=== PATIENT | female | born 1995 | race Two or more races ===

== ENCOUNTER → 2022-05-28 | Outpatient (REF) | payer OTHER | LOC: M LAB REF 12:35 | PROVIDERS: ATTEND Physician Assistant Medical | DX: J06.9 Acute upper respiratory infection, unspecified (principal) ==

== ENCOUNTER → 2022-06-16 | Outpatient (CLI) | payer OTHER ==
[2022-06-16 15:48] LABS: PERCENT SATURATION 37.1 % (13.2-45.0)
[2022-06-16 16:57] LABS: BASO % 0.7 % (0.0-1.0); EOS # 0.1 10^3/uL (0.0-0.5); EOS % 1.1 % (0.0-3.0); HEMATOCRIT 25.4 % (36.0-47.0); HEMOGLOBIN 7.5 g/dl (12.0-15.5); LYMPH # 1.3 10^3/uL (1.5-5.0); MEAN CORPUSCULAR VOLUME 88.2 fl (80.0-96.0); MONO # 0.2 10^3/uL (0.0-0.8); MONO % 4.7 % (2.0-8.0); NEUTROPHILS # 2.8 10^3/uL (1.5-8.5); NEUTROPHILS % 62.3 % (36.0-66.0); PLATELET COUNT, AUTOMATED 103 10^3/uL (150-450); RED BLOOD COUNT 2.88 10^6/uL (4.00-5.40); WHITE BLOOD COUNT 4.5 10^3/uL (4.0-10.0)
[2022-06-16 17:02] LABS: MEAN CORPUSCULAR HGB CONC 29.5 g/dl (32.0-36.5)
== END ==
LOC: M PLALAB 13:29
PROVIDERS: ATTEND Internal Medicine Hematology
DX: D69.3 Immune thrombocytopenic purpura (principal)

== ENCOUNTER 2022-06-25 16:53 | Inpatient (IN) | payer OTHER ==
[~2022-06-25] VITALS: Ht 160 cm; Wt 72.1 kg
[2022-06-25] MEDS ORDERED: Vitamin D (17:04)
[2022-06-25] MEDS ORDERED: ACETAMINOPHEN TAB 650MG DOSE (2X325MG) PO ONE (18:20)
[2022-06-25] MEDS ORDERED: diphenhydrAMINE 50MG CAP PO ONE (18:20)
[2022-06-25] MEDS ORDERED: predniSONE 20 MG TAB PO ONE (18:30)
[2022-06-25] MEDS ORDERED: VITMTA PO (18:35)
[2022-06-25] MEDS ORDERED: HOME MED LIST COMPLETE! XX SCH (18:35)
[2022-06-25] MEDS ORDERED: ERGO500029 PO (18:35)
[2022-06-25 18:58] LABS: BASO % 0.6 % (0.0-1.0); EOS % 1.2 % (0.0-3.0); LYMPH % 29.6 % (24.0-44.0); MEAN CORPUSCULAR HEMOGLOBIN 26.1 pg (27.0-33.0); MEAN CORPUSCULAR VOLUME 89.6 fl (80.0-96.0); MONO # 0.2 10^3/uL (0.0-0.8); MONO % 5.1 % (2.0-8.0); NEUTROPHILS # 2.1 10^3/uL (1.5-8.5); NEUTROPHILS % 61.7 % (36.0-66.0); PLATELET COUNT, AUTOMATED 122 10^3/uL (150-450); RED BLOOD COUNT 2.11 10^6/uL (4.00-5.40); WHITE BLOOD COUNT 3.3 10^3/uL (4.0-10.0)
[2022-06-25 19:00] LABS: HEMATOCRIT 18.9 % (36.0-47.0); HEMOGLOBIN 5.5 g/dl (12.0-15.5)
[2022-06-25 19:08] LABS: APPEARANCE, URINE MANUAL CLEAR (CLEAR); COLOR, URINE MANUAL LT YELLOW (YELLOW)
[2022-06-25 19:09] LABS: INR 0.95; PROTHROMBIN TIME 13.1 SECONDS (12.7-14.5)
[2022-06-25 19:10] LABS: PARTIAL THROMBOPLASTIN TIME 30.5 SECONDS (25.9-37.0)
[2022-06-25 19:11] LABS: BILIRUBIN, URINE MANUAL NEGATIVE (NEGATIVE); BLOOD URINE MANUAL POSITIVE (NEGATIVE); GLUCOSE, URINE (UA) MANUAL NEGATIVE (NEGATIVE); KETONE, URINE MANUAL NEGATIVE (NEGATIVE); LEUKOCYTE ESTERASE, URINE MAN POSITIVE (NEGATIVE); NITRITE, URINE MANUAL NEGATIVE (NEGATIVE); PH,URINE MAN 6.5 UNITS (5.0 - 7.0); PROTEIN, URINE MANUAL NEGATIVE (NEGATIVE); UROBILINOGEN, URINE MANUAL NORMAL (NORMAL)
[2022-06-25 19:16] LABS: MEAN CORPUSCULAR HGB CONC 29.1 g/dl (32.0-36.5)
[2022-06-25 19:36] LABS: BACTERIA, URINE NONE SEEN; HYALINE CAST, URINE NONE SEEN /lpf (0-1); RBC, URINE 0-1 /hpf (0-3); SQUAMOUS EPITHELIAL CELL URINE MOD AMOUNT /hpf (SMALL AMT); YEAST, URINE SMALL AMOUNT
[2022-06-25 19:42] LABS: RSV AMPLIFICATION NEGATIVE (NEGATIVE)
[2022-06-25] MEDS ORDERED: ISOVUE-370 76% 100ML VIAL As Ordered ONE (19:50)
[2022-06-25 19:53] LABS: ALBUMIN 3.1 GM/DL (3.2-5.2); ALT/SGPT 21 U/L (12-78); BILIRUBIN,TOTAL 0.7 MG/DL (0.2-1.0); BLOOD UREA NITROGEN 11 MG/DL (7-18); CALCIUM LEVEL 8.2 MG/DL (8.5-10.1); CARBON DIOXIDE LEVEL 23 MEQ/L (21-32); CHLORIDE LEVEL 110 MEQ/L (98-107); FOLATE > 24.0 NG/ML (>5.4); GLOMERULAR FILTRATION RATE > 60.0 (>60); GLUCOSE, FASTING 92 MG/DL (70-100); POTASSIUM SERUM 3.4 MEQ/L (3.5-5.1); SODIUM LEVEL 139 MEQ/L (136-145); TOTAL PROTEIN 9.1 GM/DL (6.4-8.2); VITAMIN B12 LEVEL 640 PG/ML (247-911)
[2022-06-25 19:55] LABS: HEPATITIS B SURFACE ANTIGEN NEGATIVE (NEGATIVE)
[2022-06-25 20:23] LABS: HEPATITIS B CORE ANTIBODY IGM NEGATIVE (NEGATIVE)
[2022-06-25 20:24] LABS: HIV 1&2 SCREEN CENTAUR NEGATIVE (NEGATIVE)
[2022-06-25 21:02] LABS: HCG, SERUM QUALITATIVE NEGATIVE (NEGATIVE)
[2022-06-25 21:07] LABS: BILIRUBIN,DIRECT 0.2 MG/DL (0.0-0.2); LDH LACTATE DEHYDROGENASE 529 U/L (84-246)
[2022-06-25 21:19] VITALS: BP 138/81
[2022-06-26 00:37] VITALS: BP 122/65
[2022-06-26 04:00] VITALS: BP 112/63
[2022-06-26 05:49] LABS: ALBUMIN 3.5 GM/DL (3.2-5.2); ALT/SGPT 21 U/L (12-78); BILIRUBIN,DIRECT 0.3 MG/DL (0.0-0.2); BILIRUBIN,TOTAL 0.7 MG/DL (0.2-1.0); BLOOD UREA NITROGEN 12 MG/DL (7-18); CALCIUM LEVEL 8.7 MG/DL (8.5-10.1); CARBON DIOXIDE LEVEL 23 MEQ/L (21-32); CHLORIDE LEVEL 108 MEQ/L (98-107); CREATININE FOR GFR 0.66 MG/DL (0.55-1.30); GLOMERULAR FILTRATION RATE > 60.0 (>60); GLUCOSE, FASTING 143 MG/DL (70-100); LDH LACTATE DEHYDROGENASE 470 U/L (84-246); POTASSIUM SERUM 3.6 MEQ/L (3.5-5.1); SODIUM LEVEL 138 MEQ/L (136-145); TOTAL PROTEIN 9.9 GM/DL (6.4-8.2)
[2022-06-26 06:10] LABS: MEAN CORPUSCULAR HEMOGLOBIN 25.8 pg (27.0-33.0); MEAN CORPUSCULAR HGB CONC 28.3 g/dl (32.0-36.5); MEAN CORPUSCULAR VOLUME 91.1 fl (80.0-96.0); PLATELET COUNT, AUTOMATED 147 10^3/uL (150-450); RED BLOOD COUNT 2.25 10^6/uL (4.00-5.40); WHITE BLOOD COUNT 3.8 10^3/uL (4.0-10.0)
[2022-06-26 06:12] LABS: HEMATOCRIT 20.5 % (36.0-47.0); HEMOGLOBIN 5.8 g/dl (12.0-15.5)
[2022-06-26 08:00] VITALS: BP 125/71
[2022-06-26] MEDS ORDERED: MOXIFLOXACIN 400 MG TAB PO SCH (09:05)
[2022-06-26] MEDS: predniSONE 10 MG TAB PO SCH (09:28)
[2022-06-26 12:00] VITALS: BP 118/70
[2022-06-26 15:42] VITALS: BP 121/68
[2022-06-26 20:00] VITALS: BP 125/62
[2022-06-27] VITALS (17 sets, daily range): BP systolic 111–141; BP diastolic 56–77
[2022-06-27 05:54] LABS: MEAN CORPUSCULAR HEMOGLOBIN 34.6 pg (27.0-33.0); MEAN CORPUSCULAR HGB CONC 33.7 g/dl (32.0-36.5); MEAN CORPUSCULAR VOLUME 102.5 fl (80.0-96.0); PLATELET COUNT, AUTOMATED 121 10^3/uL (150-450); RED BLOOD COUNT 1.59 10^6/uL (4.00-5.40); WHITE BLOOD COUNT 6.3 10^3/uL (4.0-10.0)
[2022-06-27 05:55] LABS: HEMATOCRIT 16.3 % (36.0-47.0); HEMOGLOBIN 5.5 g/dl (12.0-15.5)
[2022-06-27 06:25] LABS: ALBUMIN 3.1 GM/DL (3.2-5.2); ALT/SGPT 16 U/L (12-78); BILIRUBIN,DIRECT 0.2 MG/DL (0.0-0.2); BILIRUBIN,TOTAL 0.6 MG/DL (0.2-1.0); BLOOD UREA NITROGEN 14 MG/DL (7-18); CALCIUM LEVEL 8.4 MG/DL (8.5-10.1); CARBON DIOXIDE LEVEL 25 MEQ/L (21-32); CHLORIDE LEVEL 112 MEQ/L (98-107); CREATININE FOR GFR 0.59 MG/DL (0.55-1.30); GLOMERULAR FILTRATION RATE > 60.0 (>60); GLUCOSE, FASTING 88 MG/DL (70-100); LDH LACTATE DEHYDROGENASE 382 U/L (84-246); POTASSIUM SERUM 3.7 MEQ/L (3.5-5.1); SODIUM LEVEL 142 MEQ/L (136-145); TOTAL PROTEIN 9.2 GM/DL (6.4-8.2)
[2022-06-27] MEDS ORDERED: diphenhydrAMINE 25MG CAP PO ONE (07:25)
[2022-06-27] MEDS ORDERED: ACETAMINOPHEN TAB 650MG DOSE (2X325MG) PO ONE (07:25)
[2022-06-27] MEDS: predniSONE 10 MG TAB PO SCH (09:13)
[2022-06-27] MEDS ORDERED: PRED20TA PO (09:43)
[2022-06-27] MEDS ORDERED: PRED50TA PO (09:43)
[2022-06-27] MEDS: IBUPROFEN 400MG TAB PO PRN (12:57)
[2022-06-27 14:08] LABS: ANTI DOUBLE STRAND-DNA AB 38 IU/mL (0-9); ANTINUCLEAR ANTIBODIES DIRECT Positive (Negative); SJOGREN'S ANTI SS-A >8.0 AI (0.0-0.9); SJOGREN'S ANTI SS-B 1.3 AI (0.0-0.9); SMITH ANTIBODIES 1.7 AI (0.0-0.9)
[2022-06-27] MEDS: FUROSEMIDE 20MG/2ML VIAL (J1940) IV SCH ×2 (14:37→16:00)
[2022-06-27] MEDS ORDERED: PROMETHAZINE 25MG/ML 1ML VIAL IV ONE (17:00)
[2022-06-27] MEDS ORDERED: ACETAMINOPHEN TAB 650MG DOSE (2X325MG) PO STA (20:12)
[2022-06-27 21:19] LABS: LYMPH # 1.9 10^3/uL (1.5-5.0); MEAN CORPUSCULAR HEMOGLOBIN 35.4 pg (27.0-33.0); MEAN CORPUSCULAR HGB CONC 34.9 g/dl (32.0-36.5); MEAN CORPUSCULAR VOLUME 101.6 fl (80.0-96.0); MONO # 0.4 10^3/uL (0.0-0.8); MONO % 3.7 % (2.0-8.0); NEUTROPHILS # 9.2 10^3/uL (1.5-8.5); NEUTROPHILS % 78.9 % (36.0-66.0); RED BLOOD COUNT 1.92 10^6/uL (4.00-5.40); WHITE BLOOD COUNT 11.6 10^3/uL (4.0-10.0)
[2022-06-27 21:36] LABS: HEMATOCRIT 19.5 % (36.0-47.0); HEMOGLOBIN 6.8 g/dl (12.0-15.5)
[2022-06-27 21:37] LABS: PLATELET COUNT, AUTOMATED 75 10^3/uL (150-450)
[2022-06-27 21:44] LABS: ERYTHROCYTE SEDIMENTATION RATE 117 mm/hr (0-20)
[2022-06-27 21:51] LABS: BACTERIA, URINE NONE SEEN; HYALINE CAST, URINE NONE SEEN /lpf (0-1); MUCUS, URINE SMALL AMOUNT (NEGATIVE); SQUAMOUS EPITHELIAL CELL URINE SMALL AMOUNT /hpf (SMALL AMT)
[2022-06-27 21:53] LABS: TRANSITIONAL EPI CELLS, URINE SMALL AMOUNT /hpf; YEAST, URINE SMALL AMOUNT
[2022-06-27] MEDS ORDERED: NS 250 ML IV ONE (23:05)
[2022-06-28] VITALS (11 sets, daily range): BP systolic 106–128; BP diastolic 54–78
[2022-06-28] MEDS ORDERED: FUROSEMIDE 20MG/2ML VIAL (J1940) IV SCH (04:50)
[2022-06-28] MEDS: IBUPROFEN 400MG TAB PO PRN (07:54)
[2022-06-28] MEDS: predniSONE 10 MG TAB PO SCH (09:03)
[2022-06-28 09:41] LABS: MEAN CORPUSCULAR HGB CONC 33.2 g/dl (32.0-36.5); MEAN CORPUSCULAR VOLUME 99.5 fl (80.0-96.0); WHITE BLOOD COUNT 13.6 10^3/uL (4.0-10.0)
[2022-06-28 09:43] LABS: HEMATOCRIT 19.9 % (36.0-47.0)
[2022-06-28 09:44] LABS: HEMOGLOBIN 6.6 g/dl (12.0-15.5); PLATELET COUNT, AUTOMATED 55 10^3/uL (150-450)
[2022-06-28 10:19] LABS: ALBUMIN 3.1 GM/DL (3.2-5.2); ALT/SGPT 25 U/L (12-78); BILIRUBIN,DIRECT 0.7 MG/DL (0.0-0.2); BILIRUBIN,TOTAL 3.9 MG/DL (0.2-1.0); BLOOD UREA NITROGEN 20 MG/DL (7-18); CALCIUM LEVEL 7.8 MG/DL (8.5-10.1); CARBON DIOXIDE LEVEL 24 MEQ/L (21-32); CHLORIDE LEVEL 110 MEQ/L (98-107); CREATININE FOR GFR 0.65 MG/DL (0.55-1.30); GLOMERULAR FILTRATION RATE > 60.0 (>60); GLUCOSE, FASTING 84 MG/DL (70-100); LDH LACTATE DEHYDROGENASE 552 U/L (84-246); POTASSIUM SERUM 3.1 MEQ/L (3.5-5.1); SODIUM LEVEL 139 MEQ/L (136-145); TOTAL PROTEIN 8.9 GM/DL (6.4-8.2)
[2022-06-28] MEDS: NS 1,000 ML IV SCH ×2 (10:59→20:54)
[2022-06-28] MEDS ORDERED: MOXIFLOXACIN 400 MG TAB PO ONE (11:00)
[2022-06-28] MEDS ORDERED: MOXI400T11 PO (16:15)
[2022-06-28] MEDS ORDERED: FOLI1TAB11 PO (16:15)
[2022-06-28] MEDS: FOLIC ACID 1MG TAB PO SCH (20:56)
[2022-06-29] VITALS: BP 135/74
[2022-06-29 04:00] VITALS: BP 130/84
[2022-06-29 05:28] LABS: HEMATOCRIT 21.4 % (36.0-47.0); MEAN CORPUSCULAR HGB CONC 31.3 g/dl (32.0-36.5); MEAN CORPUSCULAR VOLUME 99.1 fl (80.0-96.0); RED BLOOD COUNT 2.16 10^6/uL (4.00-5.40); WHITE BLOOD COUNT 8.6 10^3/uL (4.0-10.0)
[2022-06-29 05:38] LABS: HEMOGLOBIN 6.7 g/dl (12.0-15.5); PLATELET COUNT, AUTOMATED 41 10^3/uL (150-450)
[2022-06-29 05:58] LABS: ALBUMIN 2.8 GM/DL (3.2-5.2); ALT/SGPT 20 U/L (12-78); BILIRUBIN,DIRECT 0.6 MG/DL (0.0-0.2); BILIRUBIN,TOTAL 1.9 MG/DL (0.2-1.0); BLOOD UREA NITROGEN 16 MG/DL (7-18); CALCIUM LEVEL 7.3 MG/DL (8.5-10.1); CARBON DIOXIDE LEVEL 22 MEQ/L (21-32); CHLORIDE LEVEL 115 MEQ/L (98-107); CREATININE FOR GFR 0.52 MG/DL (0.55-1.30); GLOMERULAR FILTRATION RATE > 60.0 (>60); GLUCOSE, FASTING 83 MG/DL (70-100); LDH LACTATE DEHYDROGENASE 486 U/L (84-246); POTASSIUM SERUM 3.2 MEQ/L (3.5-5.1); SODIUM LEVEL 141 MEQ/L (136-145); TOTAL PROTEIN 7.9 GM/DL (6.4-8.2)
[2022-06-29] MEDS: NS 1,000 ML IV SCH (05:59)
[2022-06-29] MEDS ORDERED: MOXIFLOXACIN 400 MG TAB PO SCH (06:00)
[2022-06-29 08:00] VITALS: BP 121/74
[2022-06-29] MEDS ORDERED: POTASSIUM CHLORIDE 10MEQ SR TABLET PO ONE (08:00)
[2022-06-29] MEDS: predniSONE 10 MG TAB PO SCH (09:36)
[2022-06-29] MEDS: FOLIC ACID 1MG TAB PO SCH (09:36)
[2022-06-30 17:08] LABS: HAPTOGLOBIN < 10 mg/dL (33-278)
[2022-07-01 18:08] LABS: ANTI PARVO VIRUS LEVEL IGG 0.2 index (0.0-0.8); ANTI PARVO VIRUS LEVEL IgM 0.1 index (0.0-0.8); Methylmalonic Acid 117 nmol/L (0-378)
== END 2022-06-29 13:49 | disposition home or self-care (01) | DRG 813 ==
LOC: M ED 16:53 → M ED INP 17:55 → M PCU 21:15
PROVIDERS: ADMIT General Practice; ATTEND General Practice
PROC: 30233N1 Transfusion of Nonautologous Red Blood Cells into Peripheral Vein, Percutaneous Approach (ICD-10-PCS; principal; 2022-06-27)
DX: D69.41 Evans syndrome (principal); D59.10 Autoimmune hemolytic anemia, unspecified; R91.1 Solitary pulmonary nodule; Z88.2 Allergy status to sulfonamides; Z91.040 Latex allergy status; Z79.899 Other long term (current) drug therapy; D69.6 Thrombocytopenia, unspecified

== ENCOUNTER → 2022-06-25 | Outpatient (CLI) | payer OTHER ==
[~2022-06-25] MED LIST: ERGO500029 PO; FOLI1TAB11 PO; MOXI400T11 PO; PRED20TA PO; PRED50TA PO; VITMTA PO; Vitamin D
[2022-06-25 15:32] LABS: BASO % 0.8 % (0.0-1.0); EOS # 0.1 10^3/uL (0.0-0.5); EOS % 1.8 % (0.0-3.0); LYMPH % 24.5 % (24.0-44.0); MEAN CORPUSCULAR HEMOGLOBIN 25.7 pg (27.0-33.0); MEAN CORPUSCULAR HGB CONC 28.4 g/dl (32.0-36.5); MEAN CORPUSCULAR VOLUME 90.4 fl (80.0-96.0); MONO # 0.2 10^3/uL (0.0-0.8); MONO % 4.3 % (2.0-8.0); NEUTROPHILS # 2.7 10^3/uL (1.5-8.5); NEUTROPHILS % 67.8 % (36.0-66.0); PLATELET COUNT, AUTOMATED 132 10^3/uL (150-450); WHITE BLOOD COUNT 3.9 10^3/uL (4.0-10.0)
[2022-06-25 15:34] LABS: HEMATOCRIT 20.8 % (36.0-47.0); HEMOGLOBIN 5.9 g/dl (12.0-15.5)
[2022-06-25 16:29] LABS: ALBUMIN 3.4 GM/DL (3.2-5.2); ALT/SGPT 19 U/L (12-78); BLOOD UREA NITROGEN 12 MG/DL (7-18); CALCIUM LEVEL 8.5 MG/DL (8.5-10.1); CARBON DIOXIDE LEVEL 24 MEQ/L (21-32); CHLORIDE LEVEL 111 MEQ/L (98-107); CREATININE FOR GFR 0.58 MG/DL (0.55-1.30); GLOMERULAR FILTRATION RATE > 60.0 (>60); GLUCOSE, FASTING 86 MG/DL (70-100); POTASSIUM SERUM 3.5 MEQ/L (3.5-5.1); SODIUM LEVEL 139 MEQ/L (136-145); TOTAL PROTEIN 9.9 GM/DL (6.4-8.2)
[2022-06-30 10:09] LABS: G6PD2 1.08 x10E6/uL (3.77-5.28)
== END ==
LOC: M PLALAB 10:07
PROVIDERS: ATTEND Internal Medicine Hematology
DX: D58.8 Other specified hereditary hemolytic anemias (principal)

== ENCOUNTER 2022-11-12 14:55 | Emergency (ER) | payer OTHER ==
[~2022-11-12] VITALS: Ht 160 cm; Wt 73.6 kg
[2022-11-12 14:55] VITALS: BP 131/66
[~2022-11-12 14:55] MED LIST changes: -CEFD300C41 PO; -DICY10CA13 PO; -HYDR-3713 PO
[2022-11-12 16:54] LABS: HEMOGLOBIN 10.2 g/dl (12.0-15.5); MEAN CORPUSCULAR HEMOGLOBIN 24.2 pg (27.0-33.0); MEAN CORPUSCULAR HGB CONC 30.9 g/dl (32.0-36.5); MEAN CORPUSCULAR VOLUME 78.2 fl (80.0-96.0); PLATELET COUNT, AUTOMATED 305 10^3/uL (150-450); RED BLOOD COUNT 4.22 10^6/uL (4.00-5.40); WHITE BLOOD COUNT 5.2 10^3/uL (4.0-10.0)
[2022-11-12 17:03] LABS: LIPASE 25 U/L (12-53)
[2022-11-12 17:05] LABS: ALBUMIN 3.7 G/DL (3.2-5.2); ALKALINE PHOSPHATASE 77 U/L (46-116); ALT/SGPT < 9 U/L (7.0-40); AST/SGOT 31 U/L (<34); BILIRUBIN,DIRECT 0.3 MG/DL (<0.4); BILIRUBIN,TOTAL 0.7 MG/DL (0.3-1.2); BLOOD UREA NITROGEN 8 MG/DL (9-23); CALCIUM LEVEL 8.9 MG/DL (8.5-10.1); CARBON DIOXIDE LEVEL 23 MMOL/L (20-31); CHLORIDE LEVEL 102 MMOL/L (98-107); CREATININE FOR GFR 0.62 MG/DL (0.55-1.30); GLOMERULAR FILTRATION RATE > 60.0 (>60); GLUCOSE, FASTING 94 MG/DL (60-100); POTASSIUM SERUM 3.6 MMOL/L (3.5-5.1); SODIUM LEVEL 135 MMOL/L (136-145); TOTAL PROTEIN 7.8 G/DL (5.7-8.2)
[2022-11-12 17:16] LABS: HCG, SERUM QUALITATIVE NEGATIVE (NEGATIVE)
[2022-11-12 17:24] LABS: LYMPHOCYTES 9 % (16-44); MONOCYTES 10 % (0-5); NEUTROPHILS 79 % (28-66)
[2022-11-12 17:25] LABS: HYPOCHROMASIA 1+; MICROCYTOSIS 1+; PLATELET CLUMPS SMALL AMT; PLATELET ESTIMATE NORMAL (NORMAL)
[2022-11-12] MEDS ORDERED: PANTOPRAZOLE 40MG VIAL IV ONE (20:15)
[2022-11-12] MEDS ORDERED: ACETAMINOPHEN 325 MG TAB PO ONE (20:15)
[2022-11-12] MEDS ORDERED: ISOVUE-370 76% 100ML VIAL As Ordered ONE (20:17)
[2022-11-12] MEDS ORDERED: DICYCLOMINE 10 MG CAP PO ONE (22:20)
[2022-11-12] MEDS ORDERED: cefTRIAXone SOD 1 GM in D5W MINI-BAG PLUS 50 ML IV ONE (22:20)
[2022-11-12] MEDS ORDERED: MORPHINE 4 MG/ML 1ML VIAL IV ONE (22:20)
[2022-11-12] MEDS ORDERED: DICY10CA13 PO (22:43)
[2022-11-12] MEDS ORDERED: CEFD300C41 PO (22:43)
[2022-11-12] MEDS ORDERED: HYDR-3713 PO (22:46)
== END 2022-11-12 23:11 | disposition home or self-care (01) ==
LOC: M ED 14:55
DX: D73.5 Infarction of spleen (principal); R19.7 Diarrhea, unspecified; D69.3 Immune thrombocytopenic purpura; D64.9 Anemia, unspecified; G43.909 Migraine, unspecified, not intractable, without status migrainosus; Z88.2 Allergy status to sulfonamides; Z91.040 Latex allergy status; Z79.899 Other long term (current) drug therapy
CPT/HCPCS: 74177; 80048; 80076; 81000; 81015; 83690; 84703; 85025; 87088; 87186; 96365; 96375; 99284; C9113; J0696; J2270

== ENCOUNTER → 2022-11-12 | Outpatient (REF) | payer OTHER ==
[~2022-11-12] MED LIST changes: +CEFD300C41 PO; +DICY10CA13 PO; +HYDR-3713 PO; +POTA-151 PO; +PRED10PA2 PO
== END ==
LOC: M LAB REF 16:17
PROVIDERS: ATTEND Nurse Practitioner Family
DX: R39.9 Unspecified symptoms and signs involving the genitourinary system (principal)

== ENCOUNTER → 2022-12-16 | Outpatient (CLI) | payer OTHER ==
[~2022-12-16] MED LIST changes: +CEFD300C41 PO; +DICY10CA13 PO; +HYDR-3713 PO
== END ==
LOC: M WHC 07:32
PROVIDERS: ATTEND Nurse Practitioner Family
DX: R16.0 Hepatomegaly, not elsewhere classified (principal)

== ENCOUNTER → 2023-01-15 | Outpatient (REF) | payer OTHER ==
[2023-01-15 17:16] LABS: BASO % 0.4 % (0.0-1.0); EOS % 1.7 % (0.0-3.0); HEMATOCRIT 37.6 % (36.0-47.0); HEMOGLOBIN 11.5 g/dl (12.0-15.5); LYMPH # 0.8 10^3/uL (1.5-5.0); LYMPH % 34.7 % (24.0-44.0); MEAN CORPUSCULAR HGB CONC 30.6 g/dl (32.0-36.5); MEAN CORPUSCULAR VOLUME 75.4 fl (80.0-96.0); MONO # 0.3 10^3/uL (0.0-0.8); MONO % 12.3 % (2.0-8.0); NEUTROPHILS # 1.2 10^3/uL (1.5-8.5); NEUTROPHILS % 50.5 % (36.0-66.0); PLATELET COUNT, AUTOMATED 326 10^3/uL (150-450); RED BLOOD COUNT 4.99 10^6/uL (4.00-5.40); WHITE BLOOD COUNT 2.4 10^3/uL (4.0-10.0)
[2023-01-15 17:19] LABS: ALBUMIN 4.2 G/DL (3.2-5.2); ALKALINE PHOSPHATASE 73 U/L (46-116); ALT/SGPT 19 U/L (7.0-40); AST/SGOT 25 U/L (<34); BILIRUBIN,TOTAL 0.3 MG/DL (0.3-1.2); BLOOD UREA NITROGEN 9 MG/DL (9-23); CALCIUM LEVEL 9.3 MG/DL (8.5-10.1); CARBON DIOXIDE LEVEL 27 MMOL/L (20-31); CHLORIDE LEVEL 103 MMOL/L (98-107); CREATININE FOR GFR 0.52 MG/DL (0.55-1.30); GLOMERULAR FILTRATION RATE > 60.0 (>60); GLUCOSE, FASTING 85 MG/DL (60-100); POTASSIUM SERUM 3.9 MMOL/L (3.5-5.1); SODIUM LEVEL 137 MMOL/L (136-145); TOTAL PROTEIN 8.9 G/DL (5.7-8.2)
== END ==
LOC: M LAB REF 16:20
PROVIDERS: ATTEND Nurse Practitioner Family
DX: R16.0 Hepatomegaly, not elsewhere classified (principal)

== ENCOUNTER → 2023-05-28 | Outpatient (REF) | payer OTHER ==
[~2023-05-28] MED LIST changes: +AMPH1CAP16; +DICY-61 PO; -DICY10CA13 PO; +MONT-5 PO
[2023-05-28 12:10] LABS: CHOLESTEROL RISK RATIO 3.66 (<5); HDL CHOLESTEROL 39.8 MG/DL (>40); LDL CHOLESTEROL 90.8 MG/DL (<100); NON-HDL-C 106.2 MG/DL; THYROID STIMULATING HORMONE 1.609 uIU/ML (0.55-4.78); TOTAL 25(OH) VITAMIN D 37.4 NG/ML (20.0-100.0)
== END ==
LOC: M LAB REF 11:20
PROVIDERS: ATTEND Nurse Practitioner Family
DX: Z13.228 Encounter for screening for other metabolic disorders (principal)